=== PATIENT | female | born 1955 | race Caucasian/White ===

== ENCOUNTER → 2021-03-03 10:47 | Outpatient (CLI) | payer BC, SELFPAY ==
--- NOTE | 2021-03-03 | DI.MG.S_ITS ---
UNILATERAL RIGHT DIGITAL SCREENING MAMMOGRAM 3D/2D WITH CAD POST MASTECTOMY: 03/03/2021 CLINICAL: Baseline. Breast cancer. No prior exams were available for comparison. The tissue of right breast is heterogeneously dense. This may lower the sensitivity of mammography. Current study was also evaluated with a Computer Aided Detection (CAD) system. There is an irregular equal density focal asymmetry with an indistinct margin in the right breast at 1 o'clock anterior depth. There is possible architectural distortion associated with the focal asymmetry. No other significant masses or calcifications are seen in the breast. IMPRESSION: INCOMPLETE: NEEDS ADDITIONAL IMAGING EVALUATION The irregular equal density focal asymmetry in the right breast is indeterminate. Mediolateral and spot compression views as well as additional views with possible ultrasound are recommended. This exam was interpreted at Station ID: [id number]. NOTE: For mammograms, a report in lay terms will be sent to the patient. Approximately 15% of breast malignancies will not be visualized mammographically. In the management of a palpable breast mass, a negative mammogram must not discourage biopsy of a clinically suspicious lesion. Electronically Signed By: Warren anthony/:03/04/2021 09:28:26 letter sent: Additional Imaging Needed ACR BI-RADS Category 0: Incomplete [id number]
== END ==
PROVIDERS: PCP Specialist; Referring Provider Specialist; Visit Provider Specialist
DX: Z12.31 Encounter for screening mammogram for malignant neoplasm of breast (principal); Z85.3 Personal history of malignant neoplasm of breast
CPT/HCPCS: 77063; 77067

== ENCOUNTER → 2021-03-25 11:08 | Outpatient (CLI) | payer BC, SELFPAY ==
--- NOTE | 2021-03-25 | DI.MG.S_ITS ---
UNILATERAL RIGHT DIGITAL DIAGNOSTIC MAMMOGRAM 3D/2D WITH ADDITIONAL VIEWS: 03/25/2021 CLINICAL: Additional evaluation requested from prior study. Comparison is made to exam dated: 03/03/2021 [facility]. The tissue of right breast is heterogeneously dense. This may lower the sensitivity of mammography. There is irregular architectural distortion with an indistinct margin in the right breast at 10 o'clock middle depth. This finding persists on spot compression images, but appears to localize to the upper outer quadrant. The previously seen abnormality in the right medial breast on the CC view from the prior exam does not persist and is consistent with normal fibroglandular tissue. A single punctate calcification is seen adjacent to the architectural distortion. No other significant masses or calcifications are seen in the breast. IMPRESSION: INCOMPLETE: NEEDS ADDITIONAL IMAGING EVALUATION The irregular architectural distortion in the right breast is indeterminate. An ultrasound is recommended. This exam was interpreted at Station ID: [id number]. NOTE: For mammograms, a report in lay terms will be sent to the patient. Approximately 15% of breast malignancies will not be visualized mammographically. In the management of a palpable breast mass, a negative mammogram must not discourage biopsy of a clinically suspicious lesion. Electronically Signed By: Vic mercado/tracey:03/25/2021 15:34:41 ACR BI-RADS Category 0: Incomplete [id number]
--- NOTE | 2021-03-25 | DI.US.S_ITS ---
LIMITED ULTRASOUND OF RIGHT BREAST: 03/25/2021 CLINICAL: Patient returns today to evaluate a focal asymmetry in the right breast. Comparison is made to exams dated: 03/25/2021 mammogram and 03/03/2021 mammogram - [facility]. Color flow ultrasound of the right breast was performed. Geller scale images of the real-time examination were reviewed. No significant abnormalities were seen sonographically in the right breast. IMPRESSION: SUSPICIOUS OF MALIGNANCY There is no abnormality seen in the right breast to correspond with the mammographic architectural distortion in the upper outer quadrant. Stereotactic biopsy is recommended for further evaluation. Findings and recommendations were discussed with the patient by the onsite radiologist, Dr. Hawk, at the time of the exam. If the architectural distortion is not well visualized at the time of the biopsy, follow up mammogram is recommended. This exam was interpreted at Station ID: [id number]. Electronically Signed By: Vic Luna M.D. ar/:03/25/2021 15:39:08 letter sent: Biopsy Required Ultrasound BI-RADS: 4 Suspicious for malignancy
== END ==
PROVIDERS: PCP Specialist; Referring Provider Specialist; Visit Provider Specialist
DX: R92.8 Other abnormal and inconclusive findings on diagnostic imaging of breast (principal)
CPT/HCPCS: 76642; 77065; G0279

== ENCOUNTER 2021-06-24 07:31 | Day surgery (SDC) | payer BC, SELFPAY ==
[2021-06-17 12:20] VITALS: BMI 29.5
[2021-06-24] VITALS (7 sets, daily range): BP systolic 113–144; BP diastolic 50–74; PULSE 63–67; RESP 12–94; TEMP 36.2–36.7; O2SAT 93–98; BMI 29.5
--- NOTE | 2021-06-24 | PATH_ITS ---
[facility] Accession Number: [id number] . 01 Material submitted: . PART A: breast - RIGHT BREAST TISSUE PART B: colon - ASCENDING COLON POLYP . 01 Clinical history: . A: TO X-RAY THEN PATHOLOGY . 02 Diagnosis: A. Right Breast Tissue Excision (Weight 20 grams): Complex sclerosing lesion (please see comment). Rare microcalcifications present. Negative for atypia or malignancy. Margins negative for atypia or malignancy. . B. Ascending Colon Polyp: Portions of tubular adenoma x2. Superficial portion of colorectal mucosa x1 with no significant histologic abnormality. MRV 06/26/2021 1152 Local . 02 Comment: The excisional specimen shows benign glands with varying degrees of fibrocystic change (including usual ductal hyperplasia, cystic dilatation of terminal ductules, papillomatosis, adenosis, and apocrine metaplasia) that appear to radiate around a central fibroelastic core. There is no evidence of atypia or malignancy. Changes consistent with previous instrumentation are present. . The largest contiguous measurement is 4 cm (slices 3-12, 4 mm per thickness per slice). Due to the irregular borders of complex sclerosing lesions, clinical and radiologic correlation is recommended to ensure adequate excision of the lesion. . This patient's previous biopsy report ([facility] accession [id number]; 04/02/21) was reviewed and the interpretation correlates with the current excision specimen. . As part of routine quality control tester, this case was also reviewed by Dr. Contreras, who agrees with the interpretation. . Results discussed with Dr. Niraj Narayanan's Director Speech And Hearing, on 06-26-21 at approximately 11:20 a.m. . 02 Electronically signed: . Zakiya Richardson MD, Pathologist NPI- [id number] . 01 Gross description: . A. Specimen A is received in formalin labeled right breast tissue and consists of a 20 gram, irregular and unoriented 5.0 x 4.5 x 2.0 cm tiwari-yellow fragment of fibroadipose tissue with a needle localization wire present. The specimen is inked blue. The specimen is serially sectioned into twelve slices to reveal approximately 70 percent tiwari- yellow lobulated adipose tissue and 30 percent tiwari-white fibrous and focally cystic tissue. The specimen is entirely submitted. . A1 - Slice 1, perpendicularly sectioned. A2-A6 - Slices 2-6. A7-A16 - Slices 7-11, bisected. A17-A18 - Slice 12, perpendicularly sectioned. . Formalin fixation time: Approximately 26 hours. . B. Specimen B is received in formalin labeled ascending colon polyp and consists of multiple tiwari-pink fragments of soft tissue measuring 1.0 x 0.7 x 0.2 cm in aggregate. The specimen is entirely submitted in cassette B1. ([id number]) /[facility] 06/26/[address] [place] [address] . 02 Pathologist provided ICD-10: K63.5, N60.11, N64.89 . 02 CPT . 417775, 215803 Performed at: 01 [facility] [address] [id number] MD Warren Chou MD Phone: [phone] Performed at: 02 [facility] [address] [place] [id number] MD Leola Salinas MD Phone: [phone]
--- NOTE | 2021-06-24 07:33 | DI.MG.S_ITS ---
DIGITAL MAMMOGRAPHY GUIDED WIRE LOCALIZATION RIGHT BREAST: 06/24/2021 CLINICAL: Benign neoplasm. History of breast cancer. Correlation is made to exams dated: 04/02/2021 stereotactic biopsy - [facility], 03/25/2021 ultrasound, 03/25/2021 mammogram, and 03/03/2021 mammogram - [facility]. A wire localization using digital mammography guidance was performed for the marker clip located in the right breast at 11 o'clock middle depth. The skin was prepped in the usual manner. Local anesthetic was administered to the access site. The localization was approached from the lateral aspect. A wire was inserted into the targeted area under digital mammography guidance. IMPRESSION: WIRE LOCALIZATION Wire localization for the marker clip in the right breast at 11 o'clock middle depth was successful. A specimen radiograph is recommended. This exam was interpreted at Station ID: [id number]. Laz jason/:06/25/2021 09:02:03
--- NOTE | 2021-06-24 07:48 | DI.MG.S_ITS ---
SPECIMEN RIGHT BREAST: 06/24/2021 CLINICAL: Right breast specimen. Correlation is made to exams dated: 06/24/2021 localization - [facility], 04/02/2021 stereotactic biopsy - [facility], and 03/25/2021 mammogram - [facility]. A specimen was imaged for the previous biopsy site located in the right breast at 11 o'clock posterior depth. IMPRESSION: SPECIMEN The imaged specimen includes a biopsy clip and the distal portion of the localization wire. This exam was interpreted at Station ID: [id number]. Laz jason/:06/25/2021 09:03:17
[2021-06-24 08:51] LABS: COVID19 -Nasal RAPID Negative (Negative)
[2021-06-24] MEDS: ACETAMINOPHEN 325 MG TABLET 975 MG PO (10:34)
[2021-06-24] MEDS: LACTATED RINGERS 1,000 ML 42 ML IV ×2 (10:36→13:33)
--- NOTE | 2021-06-24 11:29 | SUR.OPER ---
Supine on padded OR bed, head on pillow, arms secured on padded arm boards at <90 degrees abduction, legs uncrossed, safety belt at thigh, tape over blanket over lower legs.
--- NOTE | 2021-06-24 11:44 | PM.HP.1 ---
History of Present Illness History of Present Illness Date Patient Seen: 06/24/21 Time Patient Seen: 11:00 Chief complaint: SCREENING COLONOSCOPY & RIGHT BREAST Narrative: The patient is a woman who had a minimally invasive biopsy performed on lesion in her remaining breast. She has a personal history of breast cancer and underwent mastectomy in the past. This proved to be a lesion with very low risk of malignancy but because of her family history she decided to have this lesion completely removed. She is brought in for needle localization lumpectomy. She is also due to have a colonoscopy in due to [place] [facility] with this will be done at the same sitting. Patient History Medical History (Updated 06/24/21 @ 11:48 by Andres Healy MD) Breast cancer, left (2009) History of breast cancer HLD (hyperlipidemia) HTN (hypertension) BRITTANY on CPAP Surgical History H/O left mastectomy Hx of LASIK Family & Social History Family History Father Loud snoring Hypertension Heart disease Stroke Family/Other Cancer Social History: household members other Tobacco & Substance use: Smoking Status Never smoker alcohol intake current alcohol intake frequency holiday/special occasion Substance Use Type does not use Meds Home Medications and Allergies Home Medications Medication Instructions Recorded Confirmed Type indapamide 2.5 mg tablet 2.5 mg PO QAM 09/29/20 06/24/21 History lisinopril 10 mg tablet 10 mg PO DAILY 09/29/20 06/24/21 History glucos sul [id number]-syeme-C-Mn 3 tab PO DAILY 05/07/21 06/24/21 History [Glucosamine Chondroitin] multivitamin 1 tab PO DAILY 05/07/21 06/24/21 History calcium carbonate 500 mg (1,250 1 tab PO DAILY 06/23/21 06/24/21 History mg)-vitamin D3 125 unit tablet Allergies Allergy/AdvReac Type Severity Reaction Status Date / Time No Known Drug Allergies Allergy Verified 05/07/21 13:34 Review of Systems Review of Systems Narrative: No heart or breathing problems. No black or bloody bowel movements. Last colonoscopy over 10 years ago. Exam Vital Signs (past 8 hours): - 06/24/21 08:31 Temperature 97.6 F Pulse Rate 63 Respiratory Rate 20 Blood Pressure 129/74 Pulse Oximetry 98 Oxygen Delivery Method Room Air Narrative Exam Narrative: Cooperative in no apparent distress. Eyes are nonicteric. Lungs clear to auscultation. No rales or rhonchi. Left mastectomy. Cup over right insertion site. Heart regular rate and rhythm without murmur gallop. Abdomen is soft nontender without mass. Patient is alert oriented. Objective Labs Labs: Laboratory Results - last 24 hr 06/24/21 08:24 SARS-CoV-2 (PCR) Negative Assessment & Plan Assessment and plan (1) Mass of right breast on mammogram: Status: Acute (2) Papilloma of right breast: Status: Acute Assessment & Plan narrative: Needle of position successfully accomplished. I have discussed both procedures with her. Risks of bleeding, infection, failure to move the correct tissue were all discussed regarding her breast biopsy. Colonoscopy prep went well. I have discussed the procedure and the rationale with the patient including risks of bleeding, perforation which would necessitate a major operation, failure to find remove all lesions and the potential to tattoo. She appeared to understand and wished to proceed. Time Spent With Patient Critical Care time: I spent a total of [] minutes of critical care time on this patient's care today; this time is exclusive of procedural time.
--- NOTE | 2021-06-24 11:49 | PM.PREOP ---
Pre-operative Note COVID-19 COVID-19 status: Negative Result date/Date tested (Pos, Neg/Pending): 06/24/21 Interval Note History & Physical reviewed/Exam performed by Physician: Yes Changes to H&P: No
[2021-06-24] MEDS: CEFAZOLIN 1 GM VIAL 2 GM IV (11:55)
[2021-06-24] MEDS: BUPIVACAINE 0.5% (PF) VIAL 30 ML INJ (12:10)
[2021-06-24] MEDS: metroNIDAZOLE 500 MG/100 ML PIGGYBACK 100 MG IV (12:50)
--- NOTE | 2021-06-24 13:01 | SUR.OPER ---
LATERAL POSITION ON OR BED FOR COLONOSCOPY.
--- NOTE | 2021-06-24 13:47 | P.OP_ITS ---
Operative Date/Time/Diagnoses Date of procedure: 06/24/21 Time of procedure: 13:48 Pre-op diagnosis: Abnormal mammogram with a papilloma on minimally invasive biopsy. Screening for colon cancer. Last colonoscopy 10 years ago. That report will be separately dictated. Post-op diagnosis: same Procedure & Clinicians Procedure: Needle localization lumpectomy. Same procedure as scheduled: Yes Indications: Patient with a personal history of breast cancer with a papilloma for excision of that lesion, which carries a low risk of malignant conversion. Surgeon: Andres Healy Click Yes if Unassisted: Yes Anesthesia Type: General Operative Notes Findings: Clip was in the center of the specimen. Lesion appeared to be completely removed. Closure Type: primary Specimen(s): other (Breast tissue) Prosthetic devices, grafts, tissues, transplants, or devices: None Estimated Blood Loss (mL): 25 Blood products transfused: none Procedure in detail: The patient was placed supine on the operating room table underwent general LMA anesthesia. She was preoperatively given Ancef. Local anesthetic was infiltrated a curvilinear incision was made over the area where the mass was thought to be. The dissection Was carried down through the subQ to the level of breast tissue. The needle was delivered into the wound and using it as a guide the tissue around it was removed. Lesion proved to be deep in the breast. just as I was removing the tissue the needle slightly pulled through the tissue. The tissue was submitted as specimen and was found to contain the abnormality within the center of it. Meticulous hemostasis was achieved with cautery. Additional Local anesthetic was infiltrated. The space was closed with interrupted 3- 0 Vicryl. The subQ was closed with interrupted 3-0 Vicryl. The skin was closed a running 4-0 Vicryl subcuticular stitch and Steri-Strips. Dressing was applied. Patient was then given Flagyl and we proceeded with the colonoscopy which will be dictated separately. Complications: none Post-operative Condition: stable Disposition: PACU
--- NOTE | 2021-06-24 13:56 | PM.OP.COLON ---
Operative Date/Time/Diagnoses Date of procedure: 06/24/21 Time of procedure: 13:56 Pre-op diagnosis: Screening for colon cancer. Last colonoscopy 10 years ago. Post-op diagnosis: same (Two polyps in the ascending colon.) Procedure & Clinicians Study performed: Colonoscopy with hot snare polypectomy and cold biopsy. Same procedure as scheduled: Yes Indications: Screening exam. Surgeon: Andres Healy Procedure Notes SCOAP/Timeout: Performed Procedure in detail: The patient was left supine so as not to disrupt her breast biopsy site. She was given Flagyl in addition to the previously given Ancef in order to prevent seeding of this new breast biopsy wound if she became bacteremic from her colonoscopy. Digital exam was unremarkable. The scope was inserted and advanced through the rectum into the sigmoid, descending, transverse, and ascending colon. The cecum was reached identified by the ileocecal valve and the appendiceal opening. Pressure had to be applied and a stiffener inserted in order to actually reach the cecum. No lesions were seen in the cecum. Scope was gradually brought out. TwoPolyps were found in the ascending colon. One of these was removed with cold biopsy forceps and the other with a hot snare. Both appeared to be completely removed. The base of the snare site was cauterized. The scope was slowly withdrawn. The Scope ultimately was retroflexed in the rectum. The appearance was normal. The scope was removed and the patient tolerated the procedure well. The prep was very good. Scope withdrawal time: 9 minutes(19 total) Sedation minutes: 0 (General anesthesia was given as the patient had already just had a breast biopsy of this was combined with that procedure.) Findings: polyp(s) Specimen(s): other (Polyps) Complications: none Post-procedure Recommendations: Colonoscopy in 5 years Follow up: as needed Disposition: PACU
== END 2021-06-24 14:50 | disposition home or self-care (01) ==
PROVIDERS: PCP Specialist; Referring Provider Specialist; Visit Provider Specialist
PROC: (CPT 19125; principal; 2021-06-24 11:15)
PROC: 0DJD8ZZ Inspection of Lower Intestinal Tract, Via Natural or Artificial Opening Endoscopic (ICD-10-PCS; CPT 45378; 2021-06-24 11:15)
DX: N60.11 Diffuse cystic mastopathy of right breast (principal); Z12.11 Encounter for screening for malignant neoplasm of colon; Z85.3 Personal history of malignant neoplasm of breast; E78.5 Hyperlipidemia, unspecified; I10 Essential (primary) hypertension; G47.33 Obstructive sleep apnea (adult) (pediatric); N64.89 Other specified disorders of breast
CPT/HCPCS: 19125; 45385; 45380; 19281; 76098; 87635; C1819; J0690; J1100; J1885; J2250; J2405; J2704; J3010

== ENCOUNTER 2021-12-27 11:12 | Emergency (ER) | payer BC, SELFPAY ==
[2021-12-27 11:29] VITALS: BP 154/70; PULSE 59; RESP 12; TEMP 36.1; O2SAT 97; BMI 29.7
--- NOTE | 2021-12-27 11:36 | DI.US.S_ITS ---
PROCEDURE: US PELVIC COMPLETE INDICATIONS: VAGINAL BLEEDING TECHNIQUE: Real-time scanning was performed of the pelvic organs, with image documentation. Additional endovaginal scanning was necessary due to incomplete visualization of the adnexal and endometrial structures by transabdominal scanning. COMPARISON: None. FINDINGS: Uterus: Uterus is retroverted and normal in size at 8.1 x 5.8 x 7.8 cm. The myometrium is heterogenous. There is a 5.0 x 4.2 x 4.9 cm solid myometrial lesion probably reflecting submucosal fibroid distorting the endometrium. Ovaries: Neither ovary visualized Other: No pathologic free abdominal or pelvic fluid. IMPRESSION: Probable submucosal 5 cm uterine fibroid distorts the endometrium Approved by: Manuel Huff M.D. on 12/27/2021 at 12:06
[2021-12-27 12:05] LABS: Add Manual Diff / Slide Review NO; Basophils Absolute Auto 100 /uL (0-100); Eosinophils Absolute Auto 100 /uL (0-450); Eosinophils Percent Auto 1.7 % (2-4); Hematocrit 39.8 % (36-46); Hemoglobin 13.6 g/dL (12.0-16.0); Lymphocytes Absolute Auto 1800 /uL (1100-4500); Lymphocytes Percent Auto 25.2 % (25-40); Mean Corpuscular HGB Conc 34.3 % (30-36); Mean Corpuscular Hemoglobin 29.9 PG (26-34); Mean Corpuscular Volume 87.4 fL (80-100); Monocytes Absolute Auto 500 /uL (0-900); Monocytes Percent Auto 7.1 % (3-14); Neutrophils Absolute Auto 4700 /uL (1500-7000); Platelet Count 243 X10^3/uL (150-400); Red Blood Cell Count 4.55 X10^6/uL (4.0-5.2); Red Cell Distribution Width 13.8 % (11.6-14.8); White Blood Cell Count 7.2 X10^3/uL (4.5-11.0)
[2021-12-27 12:16] LABS: Alanine Aminotransferase 17 IU/L (<35); Albumin Globulin Ratio 1.5 (1.0-2.8); Alkaline Phosphatase 91 U/L (38-126); Aspartate Aminotransferase 23 IU/L (14-36); BUN Creatinine Ratio 27.9 (6-22); Bilirubin Total 0.3 mg/dL (0.2-1.3); Blood Urea Nitrogen 17 mg/dL (7-17); Carbon Dioxide 28 mmol/L (22-32); Chloride 107 mmol/L (98-107); Estimated Glomerular Filt Rate > 60 mL/min (>60); Globulin 2.7 g/dL (1.7-4.1); Glucose 102 mg/dL (80-110); HEMOLYSIS < 15 (0-50); Potassium 3.5 mmol/L (3.4-5.1); Sodium 141 mmol/L (137-145); Total Protein 6.7 g/dL (6.3-8.2)
[2021-12-27 14:04] VITALS: BP 171/78; PULSE 53; RESP 18; O2SAT 97
--- NOTE | 2021-12-27 17:57 | ED_ITS ---
HPI - Female Genitourinary <Francoise Baldwin PA-C - Last Filed: 12/27/21 18:08> General Chief complaint: Vaginal Bleeding Stated complaint: Vaginal bleeding x 3 days Time Seen by Provider: 12/27/21 12:04 Mode of arrival: Family Vehicle History of Present Illness HPI Narrative: Patient is a 66-year-old female presenting with vaginal bleeding for 2 days. She reports feeling abdominal pressure for few hours and then while she was using the bathroom later that day a large amount of blood with clots suddenly came out. She has been having occasional mild spotting since this happened. She denies any pelvic or abdominal pain. She denies any dizziness, headache, nausea, vomiting, dysuria, or changes in her bowels. She has a history of breast cancer. Related Data Home Medications Medication Instructions Recorded Confirmed indapamide 2.5 mg tablet 2.5 mg PO QAM 09/29/20 12/27/21 lisinopril 10 mg tablet 10 mg PO DAILY 09/29/20 12/27/21 glucos sul [id number] 3 tab PO DAILY 05/07/21 12/27/21 [Glucosamine Chondroitin] multivitamin 1 tab PO DAILY 05/07/21 12/27/21 calcium carbonate 500 mg-vitamin 1 tab PO DAILY 06/23/21 12/27/21 D3 3.125 mcg (125 unit) tablet Previous Rx's Medication Instructions Recorded medroxyprogesterone 10 mg tablet See Rx Instructions .ROUTE 12/27/21 (Provera) .COMPLEX #22 tab tranexamic acid 650 mg tablet 1,300 mg PO TID #30 tab 01/07/22 Allergies Allergy/AdvReac Type Severity Reaction Status Date / Time No Known Drug Allergies Allergy Verified 12/27/21 11:33 Review of Systems <Francoise Baldwin PA-C - Last Filed: 12/27/21 18:08> Review of Systems Narrative: GENERAL: Denies fatigue, fever, or chills HEENT: Denies ear pain, vision changes, sore throat, or difficulty swallowing RESPIRATORY: Denies shortness of breath, cough, or wheezing CARDIOVASCULAR: Denies chest pain, pressure, palpitations, or edema GASTROINTESTINAL: Denies, nausea, vomiting, changes in bowel movements, or abdominal pain : See HPI. MUSCULOSKELETAL: Denies weakness, arthralgias, or myalgias SKIN: No rash, pruritis, or erythema NEUROLOGIC: Denies weakness, dizziness, headache, numbness, tingling or confusion PSYCHIATRIC: No concerning psychosocial issues. Patient History <Francoise Baldwin PA-C - Last Filed: 12/27/21 18:08> Medical History Breast cancer, left (2010) History of breast cancer HLD (hyperlipidemia) HTN (hypertension) BRITTANY on CPAP Surgical History H/O left mastectomy Hx of LASIK Family History Father Loud snoring Hypertension Heart disease Stroke Family/Other Cancer alcohol intake frequency: holidays/special occasions only Substance Use Type: does not use Exam <Francoise Baldwin PA-C - Last Filed: 12/27/21 18:08> Narrative Exam Narrative: GENERAL: 66 year old patient appears stated age. Well-developed patient, in mild distress. HEAD: Atraumatic. Normocephalic. EYES: Pupils equal round and reactive. Extraocular motions intact. No scleral icterus. No injection or drainage. ENT: Nose without bleeding, purulent drainage. Throat without erythema, tonsillar hypertrophy or exudate. Airway patent. NECK: Trachea midline. Non tender CARDIOVASCULAR: Regular rate and rhythm without murmurs, gallops, or rubs. RESPIRATORY: Clear to auscultation. Breath sounds equal bilaterally. No wheezes, rales, or rhonchi. GASTROINTESTINAL: Abdomen soft, non-tender, nondistended. EXTREMITIES: No edema or joint tenderness. BACK: Nontender without deformity or crepitance. No flank tenderness. NEURO: AOx3. SKIN: No rash or erythema of visible areas Initial Vital Signs Initial Vital Signs: Vital Signs Temperature 97.0 F L 12/27/21 11:29 Pulse Rate 59 L 12/27/21 11:29 Respiratory Rate 12 12/27/21 11:29 Blood Pressure 154/70 H 12/27/21 11:29 Pulse Oximetry 97 12/27/21 11:29 <Isabella Gentile DO - Last Filed: 01/08/22 02:00> Initial Vital Signs Initial Vital Signs: Vital Signs Temperature 97.0 F L 12/27/21 11:29 Pulse Rate 59 L 12/27/21 11:29 Respiratory Rate 12 12/27/21 11:29 Blood Pressure 154/70 H 12/27/21 11:29 Pulse Oximetry 97 12/27/21 11:29 Course <Francoise Baldwin PA-C - Last Filed: 12/27/21 18:08> Orders Ordered: ED Orders 12/27/21 11:36 US pelvic complete Stat 12/27/21 11:50 Complete Blood Count AUTO DIFF Stat Comprehensive Metabolic Panel Stat Vital Signs Vital signs: Vital Signs - 8 hr 12/27/21 11:29 12/27/21 14:04 Temperature 97.0 F L Pulse Rate 59 L 53 L Respiratory Rate 12 18 Blood Pressure 154/70 H 171/78 H Pulse Oximetry 97 97 <Isabella Gentile DO - Last Filed: 01/08/22 02:00> Orders Ordered: ED Orders 12/27/21 11:36 US pelvic complete Stat 12/27/21 11:50 Complete Blood Count AUTO DIFF Stat Comprehensive Metabolic Panel Stat Vital Signs Vital signs: Vital Signs - 8 hr 12/27/21 11:29 12/27/21 14:04 Temperature 97.0 F L Pulse Rate 59 L 53 L Respiratory Rate 12 18 Blood Pressure 154/70 H 171/78 H Pulse Oximetry 97 97 MDM - Female Genitourinary <Francoise Baldwin PA-C - Last Filed: 12/27/21 18:08> Lab Data Result diagrams: 12/27/21 11:50 12/27/21 11:50 Labs: Lab Results 12/27/21 12/27/21 Range/Units 11:50 11:50 WBC 7.2 (4.5-11.0) X10^3/uL RBC 4.55 (4.0-5.2) X10^6/uL Hgb 13.6 (12.0-16.0) g/dL Hct 39.8 (36-46) % MCV 87.4 (80-100) fL MCH 29.9 (26-34) PG MCHC 34.3 (30-36) % RDW 13.8 (11.6-14.8) % Plt Count 243 (150-400) X10^3/uL Neut % (Auto) 65.0 (50-75) % Lymph % (Auto) 25.2 (25-40) % Brooke % (Auto) 7.1 (3-14) % Eos % (Auto) 1.7 L (2-4) % Baso % (Auto) 1.0 (0-2) % Neut # (Auto) 4700 (1361-2336) /uL Lymph # (Auto) 1800 (8415-7626) /uL Brooke # (Auto) 500 (0-900) /uL Eos # (Auto) 100 (0-450) /uL Baso # (Auto) 100 (0-100) /uL Sodium 141 (137-145) mmol/L Potassium 3.5 (3.4-5.1) mmol/L Chloride 107 (98-107) mmol/L Carbon Dioxide 28 (22-32) mmol/L BUN 17 (7-17) mg/dL Creatinine 0.61 (0.52-1.04) mg/dL Estimated GFR > 60 (>60) mL/min BUN/Creatinine Ratio 27.9 H (6-22) Glucose 102 (80-110) mg/dL Calcium 9.0 (8.4-10.2) mg/dL Total Bilirubin 0.3 (0.2-1.3) mg/dL AST 23 (14-36) IU/L ALT 17 (<35) IU/L Alkaline Phosphatase 91 (38-126) U/L Total Protein 6.7 (6.3-8.2) g/dL Albumin 4.0 (3.5-5.0) g/dL Globulin 2.7 (1.7-4.1) g/dL Albumin/Globulin Ratio 1.5 (1.0-2.8) Imaging Data US - ELECTRIC DISTRIBUTION CHECKER: Radiologist's Impression: [address] [address] Ultrasound Report Signed Patient: Shanae Torres MR#: [id number] : 1955 Acct:[id number] Age/Sex: 66 / F Date of Service: 12/27/21 Loc: ED Accession Number: [id number] ?? Procedure: US pelvic complete Ordering Provider: Isabella Gentile D.O. PROCEDURE:? US PELVIC COMPLETE ? INDICATIONS:? VAGINAL BLEEDING ? TECHNIQUE:? Real-time scanning was performed of the pelvic organs, with image documenta tion.? Additional endovaginal scanning was necessary due to incomplete visualization of the adnexal and endometrial structures by transabdominal scanning.? ? COMPARISON:? None. ? FINDINGS:? ?? Uterus:? Uterus is retroverted and normal in size at 8.1 x 5.8 x 7.8 cm. The myometrium is heterogenous.? There is a 5.0 x 4.2 x 4.9 cm solid myometrial lesion probably reflecting submucosal fibroid distorting the endometrium.? ? Ovaries:? Neither ovary visualized ? Other:? No pathologic free abdominal or pelvic fluid. ? ? IMPRESSION:? ? Probable submucosal 5 cm uterine fibroid distorts the endometrium ? ? Approved by: Manuel Huff M.D. on 12/27/2021 at 12:06? [facility] Narrative Medical decision making narrative: Patient is a 66-year-old female presenting with vaginal bleeding for 2 days. A pelvic ultrasound was ordered which shows a 5cm probable submucosal uterine fibroid. All other labs are normal. This is likely the cause of her vaginal bleeding. She was given a prescription for Provera and instructed to follow-up with Dr. Arroyo of gynecology for further evaluation and management. Findings and discharge diagnosis discussed with patient/family followed by verbalization of understanding Return precautions discussed with patient/family whom verbalize understanding. <Isabella Gentile, DO - Last Filed: 01/08/22 02:00> Lab Data Labs: Lab Results 12/27/21 12/27/21 Range/Units 11:50 11:50 WBC 7.2 (4.5-11.0) X10^3/uL RBC 4.55 (4.0-5.2) X10^6/uL Hgb 13.6 (12.0-16.0) g/dL Hct 39.8 (36-46) % MCV 87.4 (80-100) fL MCH 29.9 (26-34) PG MCHC 34.3 (30-36) % RDW 13.8 (11.6-14.8) % Plt Count 243 (150-400) X10^3/uL Neut % (Auto) 65.0 (50-75) % Lymph % (Auto) 25.2 (25-40) % Brooke % (Auto) 7.1 (3-14) % Eos % (Auto) 1.7 L (2-4) % Baso % (Auto) 1.0 (0-2) % Neut # (Auto) 4700 (2428-2769) /uL Lymph # (Auto) 1800 (4075-9650) /uL Brooke # (Auto) 500 (0-900) /uL Eos # (Auto) 100 (0-450) /uL Baso # (Auto) 100 (0-100) /uL Sodium 141 (137-145) mmol/L Potassium 3.5 (3.4-5.1) mmol/L Chloride 107 (98-107) mmol/L Carbon Dioxide 28 (22-32) mmol/L BUN 17 (7-17) mg/dL Creatinine 0.61 (0.52-1.04) mg/dL Estimated GFR > 60 (>60) mL/min BUN/Creatinine Ratio 27.9 H (6-22) Glucose 102 (80-110) mg/dL Calcium 9.0 (8.4-10.2) mg/dL Total Bilirubin 0.3 (0.2-1.3) mg/dL AST 23 (14-36) IU/L ALT 17 (<35) IU/L Alkaline Phosphatase 91 (38-126) U/L Total Protein 6.7 (6.3-8.2) g/dL Albumin 4.0 (3.5-5.0) g/dL Globulin 2.7 (1.7-4.1) g/dL Albumin/Globulin Ratio 1.5 (1.0-2.8) Discharge Plan Departure Patient Disposition: Home Clinical Impression: Vaginal bleeding, Submucous uterine fibroid Instructions: DI for Uterine Fibroids Activity Restrictions/Additional Instructions: *You have been diagnosed with a 5cm uterine fibroid. You should take the prescription received today as directed, and follow-up with Dr. Arroyo, [phone], for future management. Please return to the ER if heavy bleeding returns, or if you develop worsening pelvic pain or fever. *What to do: *Please continue to take your regular medications as directed. [X] New medication prescriptions sent to your pharmacy: [[facility]] [ ] New medication written as a paper prescription [] No new medications given *Please follow up with your primary care provider in 2-3 days, call for an appointment. Let them know you were seen in the Emergency Department and that we ask that you be seen in follow up. We will electronically transmit a record of today's note if your PCP is in our system *If you do not have a primary care provider please contact the [facility] Call Center at [phone] and they can help get you set up with a doctor in the community. *Return to Emergency Department if you should have any new, worsening or concerning symptoms, such as [fever greater than 101 F, shaking chills, worsening pain, persistent vomiting or other bothersome symptoms] Prescriptions: New medroxyprogesterone [Provera] 10 mg tablet See Rx Instructions .ROUTE .COMPLEX Qty: 22 0RF Rx Instructions: Take 2 tablets every 12 hours for 48 hours, and then take two tablets daily for 7 days No Action tranexamic acid 650 mg tablet 1,300 mg PO TID Qty: 30 12RF multivitamin Tablet 1 tab PO DAILY 0RF glucos sul [id number] [Glucosamine Chondroitin] 3 tab PO DAILY 0RF calcium carbonate-vitamin D3 500 mg(1,250mg) -125 unit Tablet 1 tab PO DAILY 0RF lisinopril 10 mg tablet 10 mg PO DAILY 0RF indapamide 2.5 mg tablet 2.5 mg PO QAM 0RF Referrals: Delmy Guzman MD [Primary Care Provider] - <Isabella Gentile DO - Last Filed: 01/08/22 02:00> Cosign ED Attending Berthaature Attestation: I was immediately available in the department for consultation. Documentation has been reviewed. I agree with assessment and plan.
== END 2021-12-27 14:05 | disposition home or self-care (01) ==
PROVIDERS: Emergency Medicine; Emergency Provider Physician Assistant; PCP Specialist
DX: D25.0 Submucous leiomyoma of uterus (principal); N93.9 Abnormal uterine and vaginal bleeding, unspecified
CPT/HCPCS: 36415; 76830; 76856; 80053; 85025; 99281; 99283

== ENCOUNTER → 2023-02-02 10:35 | Outpatient (CLI) | payer BC, SELFPAY ==
--- NOTE | 2023-02-02 10:37 | DI.RAD.S_ITS ---
PROCEDURE: XR ANKLE LT MIN 3V INDICATIONS: pain in left ankle after fall TECHNIQUE: 3 views of the ankle were acquired. COMPARISON: None. FINDINGS: Bones: Remote avulsion injury to the lateral malleolus, with a well corticated ossification along the inferior tip. No acute bony abnormality. Ankle mortise is normally aligned. No suspicious bony lesions. Soft tissues: Moderate tibiotalar joint effusion. Achilles tendon appears normal. Mild ankle edema. IMPRESSION: No displaced fracture with moderate tibiotalar fusion. Ligamentous injury not excluded. Dictated by: Calderon Chinchilla M.D. on 02/02/2023 at 11:27 Approved by: Calderon Chinchilla M.D. on 02/02/2023 at 11:28
--- NOTE | 2023-02-02 10:37 | DI.RAD.S_ITS ---
PROCEDURE: XR KNEE LT 3V INDICATIONS: pain in left knee after fall. TECHNIQUE: 3 views of the knee were acquired. COMPARISON: None. FINDINGS: Bones: No fractures or dislocations. No suspicious bony lesions. Tricompartmental joint space narrowing with associated osteophytosis. Soft tissues: No joint effusion. No suspicious soft tissue calcifications. IMPRESSION: No displaced fracture or joint effusion. [id number] tricompartmental osteoarthritis. Dictated by: Calderon Chinchilla M.D. on 02/02/2023 at 11:25 Approved by: Calderon Chinchilla M.D. on 02/02/2023 at 11:27
== END ==
PROVIDERS: PCP Specialist; Referring Provider Physician Assistant; Visit Provider Physician Assistant
DX: M25.472 Effusion, left ankle (principal); M25.562 Pain in left knee; M17.12 Unilateral primary osteoarthritis, left knee; M25.572 Pain in left ankle and joints of left foot
CPT/HCPCS: 73562; 73610

== ENCOUNTER → 2024-05-17 14:11 | Outpatient (CLI) | payer BC, SELFPAY | PROVIDERS: PCP Specialist; Referring Provider Specialist; Visit Provider Specialist | DX: Z12.31 Encounter for screening mammogram for malignant neoplasm of breast (principal); Z85.3 Personal history of malignant neoplasm of breast; R92.333 Mammographic heterogeneous density, bilateral breasts | CPT/HCPCS: 77063; 77067 ==

== ENCOUNTER → 2024-05-17 14:13 | Outpatient (CLI) | payer BC, SELFPAY ==
--- NOTE | 2024-05-17 14:14 | DI.RAD.S_ITS ---
PROCEDURE: XR DEXA AXIAL SKELETON INDICATIONS: ROUTINE SCRN/OSTEOPOROSIS/VAS D-O LOWER EXTRE COMPARISON: None. FINDINGS: Lumbar Spine: Bone mineral density 1.046 g/cm2, T score 0.0, normal. Left Hip: Bone mineral density 0.880 g/cm2, T score -0.5, normal. Left Femoral Neck: Bone mineral density 0.719 g/cm2, T score -1.2, osteopenia. Right Hip: Bone mineral density 0.827 g/cm2, T score -0.9, normal. Right Femoral Neck: Bone mineral density 0.646 g/cm2, T score -1.8, osteopenia. Fracture Risk Calculation (when applicable): 10-year fracture risk of a major osteoporotic fracture 8.5 percent and of a hip fracture 0.8 percent. (T score greater or equal to -1.0 to: NORMAL) (T score from -1.1 to -2.4: OSTEOPENIA) (T score less than or equal to -2.5: OSTEOPOROSIS) IMPRESSION: Osteopenia elevates the patient's 10 year fracture risk as described. Follow-up guidelines as follows: Osteoporosis: Consider a repeat DEXA and Vertebral Fracture Assessment (VFA) exam in 2 years or sooner if medically necessary, to reassess this patient's status. Osteopenia: Consider a repeat DEXA in 2-3 years to reassess this patient's status, or if there is a new clinical indication. Normal: Consider a repeat DEXA in 5 years or sooner, or if there is a new clinical indication. All treatment decisions require clinical judgment and consideration of individual patient factors, including patient preferences, comorbidities, previous drug use, risk factors not captured in the FRAX model (e.g., frailty, falls, vitamin D deficiency, increased bone turnover, interval significant decline in bone density ) and possible under- or over-estimation of fracture risk by FRAX. In addition, the NOF Guide recommends that FDA-approved medical therapies be considered in postmenopausal women and men age >= 50 years with a: * Hip or vertebral (clinical or morphometric) fracture * T-score of <=-2.5 at the spine or hip * Ten-year fracture probability by FRAX of >= 3% for hip fracture or >=20% for major osteoporotic fracture. People with diagnosed cases of osteoporosis or at high risk for fracture should have regular bone mineral density tests. For patients eligible for Medicare, routine testing is allowed once every 2 years. The testing frequency can be increased to one year for patients who have rapidly progressing disease, those who are receiving or discontinuing medical therapy to restore bone mass, or have additional risk factors. Dictated by: Kim Garibay M.D. on 05/18/2024 at 13:18 Approved by: Kim Garibay M.D. on 05/18/2024 at 13:19
--- NOTE | 2024-05-17 14:15 | DI.MG.S_ITS ---
UNILATERAL RIGHT DIGITAL SCREENING MAMMOGRAM 3D/2D WITH CAD POST MASTECTOMY: 05/17/2024 CLINICAL: Routine screening. Personal history of left breast cancer. Comparison is made to exams dated: 03/25/2021 mammogram and 03/03/2021 mammogram - [facility]. The breasts are heterogeneously dense, which may obscure small masses (category c / 51-75% glandular tissue). Current study was also evaluated with a Computer Aided Detection (CAD) system. No significant masses, calcifications, or other findings are seen in the breast. There has been no significant interval change. IMPRESSION: NEGATIVE There is no mammographic evidence of malignancy. A 1 year screening mammogram is recommended. This exam was interpreted at Station ID: [id number]. NOTE: For mammograms, a report in lay terms will be sent to the patient. Approximately 15% of breast malignancies will not be visualized mammographically. In the management of a palpable breast mass, a negative mammogram must not discourage biopsy of a clinically suspicious lesion. Electronically Signed By: Omega martinez/tracey:05/17/2024 16:43:39 letter sent: Normal Exam ACR BI-RADS Category 1: Negative
== END ==
PROVIDERS: PCP Specialist; Referring Provider Specialist; Visit Provider Specialist
DX: Z91.89 Other specified personal risk factors, not elsewhere classified; M85.89 Other specified disorders of bone density and structure, multiple sites
CPT/HCPCS: 77063; 77067; 77080

== ENCOUNTER → 2024-05-28 | Outpatient (CLI) | payer BC, SELFPAY ==
--- NOTE | 2024-05-28 14:25 | DI.US.S_ITS ---
PROCEDURE: US VENOUS INSUFFICIENCY BILAT INDICATIONS: ROUTINE SCRN/OSTEOPOROSIS/VAS D-O LOWER EXTRE TECHNIQUE: Real time scanning was performed of the lower extremity venous system, with imaging documentation, as well as Color and pulse Doppler interrogation. COMPARISON: None. FINDINGS: RIGHT LOWER EXTREMITY: The deep veins are normally compressible, and free of intraluminal thrombus. Color and pulse Doppler demonstrate normal intravascular flow. There is normal augmentation with distal compression maneuver. Reflux involving the common femoral vein with reflux time of 1.2 seconds Greater saphenous vein (GSV): Normally 4 mm or less in diameter, with any reflux less than 0.5 seconds. Saphenofemoral junction (SFJ): 8 mm. Borderline reflux with reflux time 0.6 sec Proximal GSV: 3 mm. No reflux. Mid GSV: 3 mm. No reflux. Distal GSV: 2 mm. No reflux. Calf GSV: 4 mm, and reflux times 0.8 seconds. Posterior accessory GSV (PAGSV): Anatomic variant across posterior thigh without reflux. Small saphenous vein (SSV): Posterior calf, draining into popliteal vein. Posterior calf: 2 mm. No reflux. Vein of Giacomini (posterior thigh connection between GSV and SSV): Anatomic variant not seen. Small 1.7 cm complex fluid collection within the right popliteal fossa likely Ingram's cyst. LEFT LOWER EXTREMITY: The deep veins are normally compressible, and free of intraluminal thrombus. Color and pulse Doppler demonstrate normal intravascular flow. There is normal augmentation with distal compression maneuver. Reflux involving the common femoral vein with reflux time 1.2 seconds Greater saphenous vein (GSV): Normally 4 mm or less in diameter, with any reflux less than 0.5 seconds. Saphenofemoral junction (SFJ): 8 mm. No reflux. Proximal GSV: 4 mm. No reflux. Mid GSV: 3 mm. No reflux. Distal GSV: 3 mm. No reflux. Calf GSV: 1 mm. No reflux. Posterior accessory GSV (PAGSV): Anatomic variant present across posterior thigh without reflux.. Small saphenous vein (SSV): Posterior calf, draining into popliteal vein. Posterior calf: 1 mm. No reflux. Vein of Giacomini (posterior thigh connection between GSV and SSV): Anatomic variant not seen. IMPRESSION: 1. Borderline reflux of the right GSV at the saphenofemoral junction and upper calf. 2. Venous insufficiency involving both common femoral veins. Remainder of the deep veins of both lower extremities without venous incompetence. Dictated by: Al Sweeney M.D. on 05/29/2024 at 11:00 Approved by: Al Sweeney M.D. on 05/29/2024 at 11:32
== END ==
PROVIDERS: PCP Specialist; Referring Provider Specialist; Visit Provider Specialist
DX: I73.9 Peripheral vascular disease, unspecified; I87.2 Venous insufficiency (chronic) (peripheral)
CPT/HCPCS: 93970

== ENCOUNTER 2024-12-25 08:39 | Emergency (ER) | payer BC, SELFPAY ==
[2024-12-25] VITALS (16 sets, daily range): BP systolic 128–157; BP diastolic 60–74; PULSE 51–59; RESP 14–16; TEMP 36.7–36.8; O2SAT 96–99; BMI 30.9
[2024-12-25 09:32] LABS: Add Manual Diff / Slide Review NO; Basophils Absolute Auto 0 /uL (0-100); Basophils Percent Auto 0.4 % (0-2); Eosinophils Absolute Auto 200 /uL (0-450); Eosinophils Percent Auto 2.1 % (2-4); Hematocrit 42.3 % (36-46); Hemoglobin 14.2 g/dL (12.0-16.0); Lymphocytes Absolute Auto 2500 /uL (1100-4500); Mean Corpuscular HGB Conc 33.5 % (30-36); Mean Corpuscular Hemoglobin 29.7 PG (26-34); Mean Corpuscular Volume 88.6 fL (80-100); Monocytes Absolute Auto 600 /uL (0-900); Monocytes Percent Auto 7.2 % (3-14); Neutrophils Absolute Auto 5500 /uL (1500-7000); Neutrophils Percent Auto 62.3 % (50-75); Platelet Count 265 X10^3/uL (150-400); Red Blood Cell Count 4.77 X10^6/uL (4.0-5.2); Red Cell Distribution Width 14.1 % (11.6-14.8); White Blood Cell Count 8.8 X10^3/uL (4.5-11.0)
[2024-12-25 09:42] LABS: Alanine Aminotransferase 22 IU/L (<35); Albumin 4.2 g/dL (3.5-5.0); Albumin Globulin Ratio 1.6 (1.0-2.8); Alkaline Phosphatase 78 U/L (38-126); Aspartate Aminotransferase 29 IU/L (14-36); BUN Creatinine Ratio 39.3 (6-22); Bilirubin Total 0.6 mg/dL (0.2-1.3); Blood Urea Nitrogen 24 mg/dL (7-17); Calcium 9.5 mg/dL (8.4-10.2); Carbon Dioxide 28 mmol/L (22-32); Chloride 103 mmol/L (98-107); Estimated Glomerular Filt Rate > 60 mL/min (>60); Globulin 2.7 g/dL (1.7-4.1); Glucose 100 mg/dL (70-99); HEMOLYSIS 34 (0-50); Potassium 3.3 mmol/L (3.4-5.1); Sodium 139 mmol/L (137-145); Total Protein 6.9 g/dL (6.3-8.2)
--- NOTE | 2024-12-25 09:58 | PC.NURSE ---
Reports painless vaginal bleeding began on Tuesday12/22/24 while outside doing yard work. Saturating 2 pads in 24 hours. No bleeding on Tuesday12/23/24. Bleeding resumed Tuesday12/24/24 saturating about 2 pads in 24 hours. Some clots noted when voiding. Denies pain, dizziness, nausea or vomiting. Reports hx of uterine fibroids.
--- NOTE | 2024-12-25 10:10 | PC.NURSE ---
Unsuccessful IV start. Labs obtained.
[2024-12-25 10:19] LABS: Bacteria Urine None Seen; Culture Indicated Urine Cult Not Indicated; RBC Urine 10-30/HPF (0-5/HPF); Squamous Epithelial Cell Urine None Seen (0-5/HPF); Urine Volume 10mL (spun); WBC Urine None Seen (0-5/HPF)
--- NOTE | 2024-12-25 11:14 | DI.US.S_ITS ---
PROCEDURE: US PELVIC COMPLETE INDICATIONS: BLEEDING TECHNIQUE: Real-time scanning was performed of the pelvic organs, with image documentation. Additional endovaginal scanning was necessary due to incomplete visualization of the adnexal and endometrial structures by transabdominal scanning. COMPARISON: [facility], US, US PELVIC COMPLETE, 12/27/2021, 12:12. FINDINGS: Uterus: 7.4 x 6.3 x 5.3 cm. Endometrium is thickened and heterogeneous measuring up to 21 mm. There is also a submucosal fibroid in the mid aspect of the uterus measuring 3.1 x 2.8 cm. Ovaries: Nonenlarged bilaterally measuring 10 cc on the right and 4 cc on the left. Left adnexal masses seen with calcifications measuring 5.8 x 3.3 cm. Other: No pathologic free fluid. IMPRESSION: Enlarged thickened heterogeneous endometrium. Consider sampling in the setting of bleeding. Submucosal fibroid also present. Left adnexal calcified mass possibly an exophytic fibroid versus ovarian soft tissue lesion. The above findings can also be assessed with pelvis MRI gynecologic protocol. Dictated by: Fly Stewart M.D. on 12/25/2024 at 12:26 Approved by: Fly Stewart M.D. on 12/25/2024 at 12:28
--- NOTE | 2024-12-25 11:17 | ED_ITS ---
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 Patient states that her bleeding started fairly suddenly and over the course of the day on Tuesday by nighttime she had filled an entire pad. She normally wears pads for occasional urinary incontinence. She describes the blood as medium in color, not bright red but also not dark or brown. She states that she then had no bleeding overnight but had additional bleeding over the next few days. She says she has been filling about 1 pad per day almost completely. She does state that when she was seen a few years ago and diagnosed with uterine fibroids the medicine she was prescribed was effective in stopping her bleeding. She says that she had a surgery to [facility] and at that time was advised that if she had a problem with uterine bleeding and fibroids again she should likely have her uterus removed. Patient does state that she has lichen sclerosis and uses a cream for this twice weekly. She does note that before Tuesday she was having more itching than usual associated with this and used the cream more. She states this also happened in 2021 when she was 1st diagnosed with fibroids. She is quite confident that the bleeding and some clots that she has had has been coming in from in internal source/uterine/vaginal. She states that she currently has her uterus and ovaries intact. She has not had any dizziness, lightheadedness, nausea, vomiting, abdominal or pelvic pain flank pain or low back pain. Related Data Home Medications Medication Instructions Recorded Confirmed indapamide 2.5 mg tablet 2.5 mg PO QAM 09/29/20 02/02/23 lisinopril 10 mg tablet 10 mg PO DAILY 09/29/20 02/02/23 glucos sul [id number]-Mn 3 tab PO DAILY 09/30/21 06/28/23 [Glucosamine Chondroitin] multivitamin 1 tab PO DAILY 05/07/21 02/02/23 calcium 500 mg (as 1 tab PO DAILY 06/23/21 02/02/23 carbonate)-vitamin D3 3.125 mcg (125 unit) tablet Previous Rx's Medication Instructions Recorded medroxyprogesterone 10 mg tablet See Rx Instructions .Route 12/27/21 (Provera) .COMPLEX vaginal bleeding #22 tabs tranexamic acid 650 mg tablet 1,300 mg (2 x 650 mg) PO TID #30 01/07/22 tabs medroxyprogesterone 10 mg tablet 10 mg PO TID post menopausal 12/25/24 (Provera) bleeding 5 days #15 tabs Allergies Allergy/AdvReac Type Severity Reaction Status Date / Time No Known Drug Allergies Allergy Verified 12/25/24 08:53 Review of Systems <Perla Miguel PA-C - Last Filed: 12/25/24 14:51> Review of Systems Narrative: See HPI Patient History <Perla Miguel PA-C - Last Filed: 12/25/24 14:51> Medical History History of breast cancer HLD (hyperlipidemia) Breast cancer, left (2009) BRITTANY on CPAP HTN (hypertension) Surgical History Hx of LASIK H/O left mastectomy Family History Father Loud snoring Hypertension Heart disease Stroke Family/Other Cancer Exam <Perla Miguel PA-C - Last Filed: 12/25/24 14:51> Narrative Exam Narrative: GENERAL: [69] year old patient appears stated age. Well-developed patient, in mild distress. HEAD: Atraumatic. Normocephalic. EYES: Pupils equal round and reactive. Extraocular motions intact. No scleral icterus. No injection or drainage. ENT: Nose without bleeding, purulent drainage. Airway patent. NECK: Trachea midline. Non tender CARDIOVASCULAR: Regular rate and rhythm without murmurs, gallops, or rubs. RESPIRATORY: Clear to auscultation. Breath sounds equal bilaterally. No wheezes, rales, or rhonchi. GASTROINTESTINAL: Abdomen soft, non-tender, protuberant, nondistended. /Pelvic: Exam deferred EXTREMITIES: No edema or joint tenderness. BACK: Nontender without deformity or crepitance. No flank tenderness. NEURO: AOx3. SKIN: No rash or erythema of visible areas Initial Vital Signs Initial Vital Signs: Vital Signs Temperature 98.2 F 12/25/24 08:41 Pulse Rate 54 L 12/25/24 08:41 Respiratory Rate 14 12/25/24 08:41 Blood Pressure 157/74 H 12/25/24 08:41 Pulse Oximetry 98 12/25/24 08:41 Oxygen Delivery Method Room Air 12/25/24 08:41 <Jovana Carolina DO - Last Filed: 12/25/24 15:36> Initial Vital Signs Initial Vital Signs: Vital Signs Temperature 98.2 F 12/25/24 08:41 Pulse Rate 54 L 12/25/24 08:41 Respiratory Rate 14 12/25/24 08:41 Blood Pressure 157/74 H 12/25/24 08:41 Pulse Oximetry 98 12/25/24 08:41 Oxygen Delivery Method Room Air 12/25/24 08:41 Course <Perla Miguel PA-C - Last Filed: 12/25/24 14:51> Orders Ordered: ED Orders 12/25/24 09:15 Cancer Antigen 125 Stat Complete Blood Count AUTO DIFF Stat Comprehensive Metabolic Panel Stat Human Epididymis Prot 4 Stat Type and Screen Stat 12/25/24 09:51 Urine Microscopic Stat 12/25/24 11:14 US pelvic complete Stat 12/25/24 14:08 Consult to Obstetrics Stat Consultations Consultation #1: Spoke with Dr. Flanagan, on-call OB director of campus recreation regarding this patient. She would like to get her in to be seen this week. Okay to start Provera for 5 days 10 mg TID. Also would like HE-4 human epididymis protein 4 ordered as well as CA 125. 1403 Vital Signs Vital signs: Vital Signs - 8 hr 12/25/24 08:41 12/25/24 09:40 12/25/24 09:49 Temperature 98.2 F Pulse Rate 54 L 51 L Respiratory Rate 14 Blood Pressure 157/74 H 152/69 H Pulse Oximetry 98 96 Oxygen Delivery Method Room Air 12/25/24 09:49 12/25/24 10:00 12/25/24 10:03 Temperature Pulse Rate 56 L 54 L Respiratory Rate Blood Pressure 141/67 H Pulse Oximetry 98 97 Oxygen Delivery Method 12/25/24 10:03 12/25/24 10:38 12/25/24 10:38 Temperature Pulse Rate 57 L 51 L Respiratory Rate Blood Pressure 139/65 Pulse Oximetry 99 99 Oxygen Delivery Method 12/25/24 11:00 12/25/24 11:00 12/25/24 11:30 Temperature Pulse Rate 56 L Respiratory Rate Blood Pressure 143/62 H 149/70 H Pulse Oximetry 97 Oxygen Delivery Method 12/25/24 11:30 12/25/24 12:00 12/25/24 12:01 Temperature Pulse Rate 56 L 57 L 56 L Respiratory Rate Blood Pressure Pulse Oximetry 99 96 96 Oxygen Delivery Method 12/25/24 12:01 12/25/24 12:30 12/25/24 12:30 Temperature Pulse Rate 58 L Respiratory Rate Blood Pressure 141/63 H 151/67 H Pulse Oximetry 97 Oxygen Delivery Method 12/25/24 13:00 12/25/24 13:00 12/25/24 13:30 Temperature Pulse Rate 54 L 59 L Respiratory Rate Blood Pressure 130/60 Pulse Oximetry 99 99 Oxygen Delivery Method Room Air 12/25/24 13:31 12/25/24 13:31 12/25/24 14:00 Temperature Pulse Rate 58 L 57 L Respiratory Rate Blood Pressure 128/63 Pulse Oximetry 98 98 Oxygen Delivery Method 12/25/24 14:00 12/25/24 14:21 Temperature 98.1 F Pulse Rate 55 L Respiratory Rate 16 Blood Pressure 130/61 130/61 Pulse Oximetry 98 Oxygen Delivery Method <Jovana Carolina, DO - Last Filed: 12/25/24 15:36> Orders Ordered: ED Orders 12/25/24 09:15 Cancer Antigen 125 Stat Complete Blood Count AUTO DIFF Stat Comprehensive Metabolic Panel Stat Human Epididymis Prot 4 Stat Type and Screen Stat 12/25/24 09:51 Urine Microscopic Stat 12/25/24 11:14 US pelvic complete Stat 12/25/24 14:08 Consult to Obstetrics Stat Vital Signs Vital signs: Vital Signs - 8 hr 12/25/24 08:41 12/25/24 09:40 12/25/24 09:49 Temperature 98.2 F Pulse Rate 54 L 51 L Respiratory Rate 14 Blood Pressure 157/74 H 152/69 H Pulse Oximetry 98 96 Oxygen Delivery Method Room Air 12/25/24 09:49 12/25/24 10:00 12/25/24 10:03 Temperature Pulse Rate 56 L 54 L Respiratory Rate Blood Pressure 141/67 H Pulse Oximetry 98 97 Oxygen Delivery Method 12/25/24 10:03 12/25/24 10:38 12/25/24 10:38 Temperature Pulse Rate 57 L 51 L Respiratory Rate Blood Pressure 139/65 Pulse Oximetry 99 99 Oxygen Delivery Method 12/25/24 11:00 12/25/24 11:00 12/25/24 11:30 Temperature Pulse Rate 56 L Respiratory Rate Blood Pressure 143/62 H 149/70 H Pulse Oximetry 97 Oxygen Delivery Method 12/25/24 11:30 12/25/24 12:00 12/25/24 12:01 Temperature Pulse Rate 56 L 57 L 56 L Respiratory Rate Blood Pressure Pulse Oximetry 99 96 96 Oxygen Delivery Method 12/25/24 12:01 12/25/24 12:30 12/25/24 12:30 Temperature Pulse Rate 58 L Respiratory Rate Blood Pressure 141/63 H 151/67 H Pulse Oximetry 97 Oxygen Delivery Method 12/25/24 13:00 12/25/24 13:00 12/25/24 13:30 Temperature Pulse Rate 54 L 59 L Respiratory Rate Blood Pressure 130/60 Pulse Oximetry 99 99 Oxygen Delivery Method Room Air 12/25/24 13:31 12/25/24 13:31 12/25/24 14:00 Temperature Pulse Rate 58 L 57 L Respiratory Rate Blood Pressure 128/63 Pulse Oximetry 98 98 Oxygen Delivery Method 12/25/24 14:00 12/25/24 14:21 Temperature 98.1 F Pulse Rate 55 L Respiratory Rate 16 Blood Pressure 130/61 130/61 Pulse Oximetry 98 Oxygen Delivery Method MDM - Female Genitourinary <Perla Miguel PA-C - Last Filed: 12/25/24 14:51> Differential Diagnosis Differential diagnosis: Likely ovarian cyst and other (Uterine bleeding, fibroids, CA) Medical Records Attestation: I reviewed the patient's medical records. Lab Data Attestation: I reviewed the patient's lab results. 12/25/24 09:15 12/25/24 09:15 Labs: Lab Results 05/20/25 05/20/25 Range/Units 09:15 09:51 WBC 8.8 (4.5-11.0) X10^3/uL RBC 4.77 (4.0-5.2) X10^6/uL Hgb 14.2 (12.0-16.0) g/dL Hct 42.3 (36-46) % MCV 88.6 (80-100) fL MCH 29.7 (26-34) PG MCHC 33.5 (30-36) % RDW 14.1 (11.6-14.8) % Plt Count 265 (150-400) X10^3/uL Neut % (Auto) 62.3 (50-75) % Lymph % (Auto) 28.0 (25-40) % [place] % (Auto) 7.2 (3-14) % Eos % (Auto) 2.1 (2-4) % Baso % (Auto) 0.4 (0-2) % Neut # (Auto) 5500 (9968-9103) /uL Lymph # (Auto) 2500 (1344-3609) /uL [place] # (Auto) 600 (0-900) /uL Eos # (Auto) 200 (0-450) /uL Baso # (Auto) 0 (0-100) /uL Sodium 139 (137-145) mmol/L Potassium 3.3 L (3.4-5.1) mmol/L Chloride 103 (98-107) mmol/L Carbon Dioxide 28 (22-32) mmol/L BUN 24 H (7-17) mg/dL Creatinine 0.61 (0.52-1.04) mg/dL Estimated GFR > 60 (>60) mL/min BUN/Creatinine Ratio 39.3 H (6-22) Glucose 100 H (70-99) mg/dL Calcium 9.5 (8.4-10.2) mg/dL Total Bilirubin 0.6 (0.2-1.3) mg/dL AST 29 (14-36) IU/L ALT 22 (<35) IU/L Alkaline Phosphatase 78 (38-126) U/L Total Protein 6.9 (6.3-8.2) g/dL Albumin 4.2 (3.5-5.0) g/dL Globulin 2.7 (1.7-4.1) g/dL Albumin/Globulin Ratio 1.6 (1.0-2.8) CA 125 Antigen 18.0 (0-35) U/mL Urine RBC 10-30/hpf H (0-5/HPF) Urine WBC None seen (0-5/HPF) Ur Squamous Epith Cells None seen (0-5/HPF) Urine Bacteria None seen (None) Ur Culture Indicated? Cult not indicated Vol Urine Centrifuged 10ml (spun) Blood Type A Positive Antibody Screen Negative Urine Dip Bedside Urine Glucose Negative Bedside Urine Bilirubin - Negative Bedside Urine Ketone - Negative Urine Specific [place] 1.010 Bedside Urine Occult Blood +++ Bedside Urine pH 6.5 Bedside Urine Protein - Negative Bedside Urine Urobilinogen - Negative Bedside Urine Nitrite - Negative Bedside Urine Leukocytes - Negative Esterase Imaging Data US - TAX AUDIT MANAGER: My Impression: Agree with radiology interpretation Radiologist's Impression: [address] [address] Ultrasound Report Signed Patient: Shanae Torres MR#: [id number] : 1955 Acct:[id number] Age/Sex: 69 / F Date of Service: 12/25/24 Loc: ED Accession Number: [id number] Procedure: US pelvic complete Ordering Provider: Perla Miguel PA-C PROCEDURE: US PELVIC COMPLETE INDICATIONS: BLEEDING TECHNIQUE: Real-time scanning was performed of the pelvic organs, with image documentation. Additional endovaginal scanning was necessary due to incomplete visualization of the adnexal and endometrial structures by transabdominal scanning. COMPARISON: [facility], , US PELVIC COMPLETE, 12/27/2021, 12:12. FINDINGS: Uterus: 7.4 x 6.3 x 5.3 cm. Endometrium is thickened and heterogeneous measuring up to 21 mm. There is also a submucosal fibroid in the mid aspect of the uterus measuring 3.1 x 2.8 cm. Ovaries: Nonenlarged bilaterally measuring 10 cc on the right and 4 cc on the left. Left adnexal masses seen with calcifications measuring 5.8 x 3.3 cm. Other: No pathologic free fluid. IMPRESSION: Enlarged thickened heterogeneous endometrium. Consider sampling in the setting of bleeding. Submucosal fibroid also present. Left adnexal calcified mass possibly an exophytic fibroid versus ovarian soft tissue lesion. The above findings can also be assessed with pelvis MRI gynecologic protocol. Dictated by: Fly Stewart M.D. on 12/25/2024 at 12:26 Approved by: Fly Stewart M.D. 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 She still has uterus and ovaries. Came in with concern for filling 1 pad with blood every day since Tuesday 3 days ago. Similar symptoms to her previous uterine fibroids. Labs obtained do not show acute anemia, she has also not had symptoms of this. Urine does have blood present but no other symptoms or findings on UA suggestive of UTI. In 2021 she had fibroid bleeding and was prescribed Provera from the ER which successfully stopped her bleeding until follow up. Pelvic ultrasound was obtained today for further evaluation. This revealed a thickened endometrium 21 mm at its greatest, homogeneous. Also she does have a submucosal fibroid approximately 3 x 3 cm as well as 2 left adnexal masses with calcifications suspicious for older fibroids. Patient had no abdominal tenderness on exam; with moderate persistent bleeding over the last 4 days since symptoms started. ER attending Dr. Carolina was also involved in this patient's care by consultation. Consulted [employer] doctor Catherine regarding this patient and she advised prescribing Provera for 5 days and would like to have this patient seen and evaluated by gynecology in clinic ideally this week to have an endometrial biopsy performed. Also obtain labs HE-4 and CA 125 for further evaluation for possible Cancer. Prescription for Provera sent in to patient's pharmacy. Discussed the plan with the patient and she intends to make an appointment for this week today. Return precautions provided, follow-up plan discussed, all questions answered. <Jovana Carolina, - Last Filed: 12/25/24 15:36> Lab Data Labs: Lab Results 12/25/24 12/25/24 Range/Units 09:15 09:51 WBC 8.8 (4.5-11.0) X10^3/uL RBC 4.77 (4.0-5.2) X10^6/uL Hgb 14.2 (12.0-16.0) g/dL Hct 42.3 (36-46) % MCV 88.6 (80-100) fL MCH 29.7 (26-34) PG MCHC 33.5 (30-36) % RDW 14.1 (11.6-14.8) % Plt Count 265 (150-400) X10^3/uL Neut % (Auto) 62.3 (50-75) % Lymph % (Auto) 28.0 (25-40) % [place] % (Auto) 7.2 (3-14) % Eos % (Auto) 2.1 (2-4) % Baso % (Auto) 0.4 (0-2) % Neut # (Auto) 5500 (7885-0603) /uL Lymph # (Auto) 2500 (8534-0533) /uL [place] # (Auto) 600 (0-900) /uL Eos # (Auto) 200 (0-450) /uL Baso # (Auto) 0 (0-100) /uL Sodium 139 (137-145) mmol/L Potassium 3.3 L (3.4-5.1) mmol/L Chloride 103 (98-107) mmol/L Carbon Dioxide 28 (22-32) mmol/L BUN 24 H (7-17) mg/dL Creatinine 0.61 (0.52-1.04) mg/dL Estimated GFR > 60 (>60) mL/min BUN/Creatinine Ratio 39.3 H (6-22) Glucose 100 H (70-99) mg/dL Calcium 9.5 (8.4-10.2) mg/dL Total Bilirubin 0.6 (0.2-1.3) mg/dL AST 29 (14-36) IU/L ALT 22 (<35) IU/L Alkaline Phosphatase 78 (38-126) U/L Total Protein 6.9 (6.3-8.2) g/dL Albumin 4.2 (3.5-5.0) g/dL Globulin 2.7 (1.7-4.1) g/dL Albumin/Globulin Ratio 1.6 (1.0-2.8) CA 125 Antigen 18.0 (0-35) U/mL Urine RBC 10-30/hpf H (0-5/HPF) Urine WBC None seen (0-5/HPF) Ur Squamous Epith Cells None seen (0-5/HPF) Urine Bacteria None seen (None) Ur Culture Indicated? Cult not indicated Vol Urine Centrifuged 10ml (spun) Blood Type A Positive Antibody Screen Negative Urine Dip Bedside Urine Glucose Negative Bedside Urine Bilirubin - Negative Bedside Urine Ketone - Negative Urine Specific [place] 1.010 Bedside Urine Occult Blood +++ Bedside Urine pH 6.5 Bedside Urine Protein - Negative Bedside Urine Urobilinogen - Negative Bedside Urine Nitrite - Negative Bedside Urine Leukocytes - Negative Esterase Discharge Plan Departure Patient Disposition: Home Clinical Impression: Postmenopausal bleeding, Adnexal mass, Endometrial thickening on ultrasound Activity Restrictions/Additional Instructions: *You have been diagnosed with [postmenopausal bleeding, endometrial thickening, adnexal mass] *What to do: *Please continue to take your regular medications as directed. [ 1] New medication prescriptions sent to your pharmacy: [Provera] [ ] New medication written as a paper prescription [ ] No new medications given *Please follow up with your primary care provider in 2-3 days, call for an appointment. Let them know you were seen in the Emergency Department and that we ask that you be seen in follow up. We will electronically transmit a record of today's note if your PCP is in our system. You came in with concern for uterine/vaginal bleeding since Tuesday. Your labs today were looking okay does not appear you have had significant blood loss and you are not anemic. We did a pelvic ultrasound to further evaluate any do have endometrial wall thickening which needs further evaluation with an endometrial biopsy. I spoke with our on- call gynecology provider Dr. Flanagan and she recommends you call or come over to get scheduled in their office for an appointment ideally this week for that testing. We did also order a few additional labs that are cancer antigens. However these labs were pending at the time of your discharge from the ED but they should be available by the time you have your follow up appointment. The ultrasound also noted you do have a submucosal fibroid which you have had in the past. And in addition they noticed some adnexal masses about 3 and 5 cm on the left side. The radiologist did feel that these masses are likely to be old fibroids. If you have new symptoms such as dizziness, lightheadedness, shortness of breath with the exertion, or heavier bleeding please make sure you seek re-evaluation in the ER or call 911. Otherwise proceed with follow up appointment ideally this week for further evaluation and care. The medication that you are prescribed, Provera should help to stop or slow the bleeding that you have been having. Please pick this up today and take it as prescribed. *If you do not have a primary care provider please contact the [facility] Resource line at [phone]. They will ask some questions about your medical history and help get you set up with a doctor in the community. *Return to Emergency Department if you should have any new, worsening or concerning symptoms, such as [fever greater than 101 F, shaking chills, worsening pain, persistent vomiting or other bothersome symptoms] Prescriptions: New medroxyprogesterone [Provera] 10 mg tablet 10 mg PO TID 5 Days Qty: 15 0RF No Action tranexamic acid 650 mg tablet 1,300 mg PO TID Qty: 30 12RF multivitamin Tablet 1 tab PO DAILY glucos sul [id number]-Mn [Glucosamine Chondroitin] 3 tab PO DAILY medroxyprogesterone [Provera] 10 mg tablet See Rx Instructions .ROUTE .COMPLEX Qty: 22 0RF Rx Instructions: Take 2 tablets every 12 hours for 48 hours, and then take two tablets daily for 7 days calcium carbonate-vitamin D3 500 mg(1,250mg) -125 unit Tablet 1 tab PO DAILY lisinopril 10 mg tablet 10 mg PO DAILY indapamide 2.5 mg tablet 2.5 mg PO QAM Referrals: Delmy Guzman MD [Primary Care Provider] - Mariana Alexander DO [Physician] - (endometrial thickening, submocosal fibroid) Stand Alone Forms: Patient Portal/API/Survey ED Sign-out <Jovana Carolina DO - Last Filed: 12/25/24 15:36> Cosign ED Attending Ant Attestation: I was immediately available in the department for consultation. Case discussed imaging and labs are reviewed. Agree with recommendations from gynecology. They did ask for additional add on labs for follow up outpatient.
== END 2024-12-25 14:22 | disposition home or self-care (01) ==
PROVIDERS: Emergency Medicine; Emergency Provider Student in an Organized Health Care Education/Training Program; PCP Specialist
DX: N95.0 Postmenopausal bleeding (principal); N94.89 Other specified conditions associated with female genital organs and menstrual cycle; R93.89 Abnormal findings on diagnostic imaging of other specified body structures
CPT/HCPCS: 36415; 76830; 76856; 80053; 81003; 81015; 85025; 86304; 86305; 86850; 86900; 86901; 99283; 99284

== ENCOUNTER 2025-01-18 10:12 | Day surgery (SDC) | payer BC, SELFPAY ==
[2025-01-16 09:19] VITALS: BMI 31.0
[2025-01-18] VITALS (7 sets, daily range): BP systolic 85–134; BP diastolic 45–94; PULSE 54–62; RESP 12–17; TEMP 36.2–36.6; O2SAT 91–99; BMI 31.0
--- NOTE | 2025-01-18 | PATH_ITS ---
[facility] Accession Number: [id number] No. of containers..01 Tissue . 01 Material submitted: . uterus - UTERINE FIBROID . 01 Diagnosis: UTERINE FIBROID: Multiple fragments of myometrium; negative for cytologic atypia, increased mitotic activity, or regions of necrosis. Endometrium with patchy cystic atrophy; negative for significant atypia. Histologic features are consistent with a benign leiomyoma, in the appropriate clinical setting. MRV 01/25/2025 1212 Local . 01 Electronically signed: . Zakiya Richardson MD, Pathologist NPI- [id number] . 01 Gross description: . Received in formalin with two identifiers and uterine fibroid, are multiple fragments of tiwari rubbery soft tissue admixed with a small amount of hemorrhagic material aggregating to 5.6 x 3.2 x 2.0 cm. Rn Cvicu tissue is submitted in cassettes A1-A3. ([id number]) /HOLLI 01/19/2025 2101 Local . 01 Pathologist provided ICD-10: N94.89, D25.0, N95.0 . 01 CPT . 726856 Specimen Comment: A courtesy copy of this report has been sent to [facility] Pathology Performed at: [address], [place], [place] [id number] MD Warren Chou MD Phone: [phone]
[2025-01-18] MEDS: LACTATED RINGERS 1,000 ML 42 ML IV (11:27)
[2025-01-18] MEDS: ACETAMINOPHEN 325 MG TABLET 975 MG PO (12:15)
--- NOTE | 2025-01-18 12:17 | PM.PREOP ---
Pre-operative Note Interval Note History & Physical reviewed/Exam performed by Physician: Yes Changes to H&P: No H&P completed within 30 days and has changed as indicated here:: see clinic note 01/01/25; counseled and consented for diagnostic laparoscopy, possible oophorectomy, diagnostic hysteroscopy, possible myomectomy, D&C
--- NOTE | 2025-01-18 12:55 | SUR.OPER ---
Lithotomy on padded OR bed. [place] Pad Positioner under torso. Head on pillow, arms padded and tucked at sides. Legs secured in padded yellow fins stirrups. Dr. Alexander, technician biological health and anesthesia in room at time of positioning. Position approved by surgeon, all pressure points padded
[2025-01-18] MEDS: BUPIVACAINE 0.25% (PF) VIAL 30 ML INJ (13:05)
--- NOTE | 2025-01-18 14:14 | P.OP_ITS ---
Operative Date/Time/Diagnoses Date of procedure: 01/18/25 Time of procedure: 12:45 Pre-op diagnosis: Postmenopausal bleeding Adnexal mass Uterine fibroids Post-op diagnosis: other (No adnexal mass) Procedure & Clinicians Procedure: Diagnostic laparoscopy Hysteroscopic myomectomy Same procedure as scheduled: Yes Indications: 69-year-old female with postmenopausal bleeding, with ultrasound findings of uterine fibroids as well as possible adnexal mass, counseled and consented for the above procedures. Surgeon: Mariana Alexander Click Yes if Unassisted: Yes Anesthesia Type: General Operative Notes Findings: Laparoscopy: Normal-appearing bilateral fallopian tubes and bilateral ovaries. Simple ovarian cyst seen on the left ovary. Uterus noted to have several calcified fibroids, with what appeared to be a broad ligament fibroid on the left side of the uterus retroperitoneally. Hysteroscopy: 5-6 cm calcified submucosal fibroid at the posterior wall of the uterus. Several other small calcified fibroids noted in the uterine wall. Otherwise normal-appearing endometrial cavity with atrophic changes. Specimen(s): other (Uterine fibroid) Applied: none Estimated Blood Loss (mL): 5 Blood products transfused: none Procedure in detail: The risks, benefits, indications and alternatives of the procedure were reviewed with the patient and informed consent was obtained. The pt was taken to the operating room where general anesthesia was obtained without difficulty. The pt was then placed in the low lithotomy position using gel-padded Al Stirrups. SCDs were placed bilaterally for VTE prophylaxis. Pt was then prepped and draped in the usual sterile fashion. Attention was then turned to the patient?s abdomen where a 5mm skin incision was made in the inferior aspect of the umbilicus after injection of 0.25% marcaine. A 5mm trocar and sleeve were then carefully introduced into the peritoneal cavity under direct visualization at a 90-degree angle while tenting up the abdominal wall. Intra-peritoneal placement was confirmed under direct visualization with the laparoscope with entry pressure <5mmHg. A pneumoperitoneum was obtained with several liters of CO2 gas, maximum pressure of 15mmHg. Upon entry into the peritoneal cavity, structures immediately below the incision were inspected and found to be free of injury. One additional 5mm trocar was placed to survey the pelvis. The above findings were noted, and given the normal appearance of her bilateral ovaries, they were left in place. The gas was then turned off and all CO2 was removed from the pt?s abdomen. The trocars were removed. The skin incision sites were reapproximated using 4-0 monocryl and dermabond. Attention was then directed vaginally, where given the narrow vaginal canal and intact hymen, a small abad retractor was used to visualize the cervix and it was grasped with a tenaculum. The cervix was then gently, dilated to a size 8 Hegar dilator. The Myosure operative hysteroscope was first primed and pressure set. The operative hysteroscope was then advanced through the endocervical canal under direct visualization. The uterus was distended with warm saline, and notable for the above findings. The Myosure XL was then inserted into the operative hysteroscope. The submucosal fibroid was shaved down as much as possible. Two Myosure devices had to be used given the significant calcification of this fibroid. The entire fib roid was unable to be fully resected given how calcified it was. The operative hysteroscope was then removed under direct visualization. Tissue obtained was sent to pathology for review. The single tooth tenaculum was removed from the anterior lip of the cervix. The tenaculum site was noted to be hemostatic after direct pressure was applied. All instruments were then removed from the patient?s vagina. Hysteroscopic fluid deficit was 800cc of normal saline. The patient tolerated the procedure well. At the completion of the case the sponge and needle counts were correct x 2. The patient was taken to the PACU in stable condition. Complications: none Post-operative Condition: stable Disposition: PACU Plan for aftercare: Discharge to home once patient is meeting all discharge criteria.
[2025-01-18] MEDS: MEPERIDINE 50 MG/ML INJ 12.5 MG IV (14:35)
== END 2025-01-18 15:35 | disposition home or self-care (01) ==
PROVIDERS: PCP Specialist; Referring Provider Student in an Organized Health Care Education/Training Program; Visit Provider Student in an Organized Health Care Education/Training Program
PROC: (CPT 49320; principal; 2025-01-18 12:30)
PROC: 0UDB8ZZ Extraction of Endometrium, Via Natural or Artificial Opening Endoscopic (ICD-10-PCS; CPT 58558; 2025-01-18 12:30)
DX: N95.0 Postmenopausal bleeding (principal); N83.292 Other ovarian cyst, left side; D25.0 Submucous leiomyoma of uterus
CPT/HCPCS: 49320; 58561; J1100; J1885; J2175; J2405; J2704; J3010

== ENCOUNTER → 2025-01-29 11:14 | Outpatient (CLI) | payer BC, SELFPAY ==
[2025-01-29 12:46] LABS: Alanine Aminotransferase 19 IU/L (<35); Albumin 3.9 g/dL (3.5-5.0); Albumin Globulin Ratio 1.8 (1.0-2.8); Alkaline Phosphatase 83 U/L (38-126); Aspartate Aminotransferase 23 IU/L (14-36); BUN Creatinine Ratio 35.4 (6-22); Bilirubin Total 0.6 mg/dL (0.2-1.3); Blood Urea Nitrogen 23 mg/dL (7-17); Calcium 9.2 mg/dL (8.4-10.2); Carbon Dioxide 30 mmol/L (22-32); Chloride 103 mmol/L (98-107); Cholesterol 172 mg/dL (140-199); Estimated Glomerular Filt Rate > 60 mL/min (>60); Globulin 2.2 g/dL (1.7-4.1); Glucose 98 mg/dL (70-99); HDL Cholesterol 49 mg/dL (40-60); HEMOLYSIS < 15 (0-50); LDL Cholesterol Calculated 95 mg/dL (<100); Potassium 3.7 mmol/L (3.4-5.1); Sodium 138 mmol/L (137-145); Total Protein 6.1 g/dL (6.3-8.2); Triglycerides 139 mg/dL (35-150)
== END ==
PROVIDERS: PCP Specialist; Referring Provider Specialist; Visit Provider Specialist
DX: E78.2 Mixed hyperlipidemia (principal); I10 Essential (primary) hypertension
CPT/HCPCS: 36415; 80053; 80061